=== PATIENT | female | born 1990 | race Caucasian/White ===

== ENCOUNTER 2022-04-15 14:45 | Inpatient (IN) | payer OTHER ==
[2022-04-15] MEDS ORDERED: SODIUM CHLORIDE 1,000 ML IV STA (15:58)
[2022-04-15] MEDS: DEXTROSE 5%-LACTATED RINGERS 1,000 ML IV SCH (16:30)
[2022-04-15 17:16] LABS: BASO % 0.2 % (0-2.0); HEMOGLOBIN 10.6 GM/dL (10.7-15.3); LYMPH % 2.2 % (8-40); MCH 22.8 pg (25.7-33.7); MEAN CELL VOLUME 73.4 fl (80-96); MEAN PLT VOLUME 10.3 fl (7.5-11.1); MONO % 4.9 % (3.8-10.2); NEUT % 92.7 % (42.8-82.8); PLATELET COUNT 256 10^3/uL (134-434); RBC 4.64 M/mm3 (3.60-5.2); RDW 16.5 % (11.6-15.6)
[2022-04-15 17:23] LABS: INR 0.97 (0.83-1.09); PROTHROMBIN TIME (PATIENT) 11.3 SEC (9.7-13.0)
[2022-04-15 17:26] LABS: ACTIVATED PTT 26.6 SECONDS (25.2-36.5)
[2022-04-15 17:34] LABS: CALCIUM 9.5 mg/dL (8.5-10.1)
[2022-04-15 17:35] LABS: ALBUMIN 2.7 g/dl (3.4-5.0)
[2022-04-15 17:37] VITALS: BMI 24.4
[2022-04-15 17:38] LABS: CREATININE 0.7 mg/dL (0.55-1.3)
[2022-04-15 17:39] LABS: BILIRUBIN,TOTAL 1.9 mg/dL (0.2-1)
[2022-04-15 17:40] LABS: TOT PROT 6.8 g/dl (6.4-8.2)
[2022-04-15 17:51] LABS: ANISOCYTOSIS 1+; MACROCYTOSIS 0
[2022-04-15] MEDS ORDERED: OXYTOCIN 30 UNITS in 0.9% NS 30 UNIT/500 ML INFUS.BAG IVPB ONE (19:47)
[2022-04-15] MEDS: OXYTOCIN 30 UNITS in 0.9% NS 30 UNIT/500 ML INFUS.BAG IVPB SCH (19:50)
[2022-04-15] MEDS ORDERED: morphine SULFATE 4 MG/ML VIAL ONE (22:05)
[2022-04-16] MEDS ORDERED: FENTANYL/BUPIVACAINE/NS/PF - PCEA - 50 ML DISP.SYRIN EP ONE (00:46)
[2022-04-16] MEDS ORDERED: BUPIVACAINE HCL/PF 0.25% (2.5MG/ML) 10 ML VIAL ONE (00:51)
[2022-04-16] MEDS ORDERED: SODIUM CHLORIDE 1,000 ML IV STA (00:57)
[2022-04-16] MEDS ORDERED: NALOXONE HCL 0.4 MG/ML VIAL IVPUSH PRN (01:39)
[2022-04-16] MEDS ORDERED: FENTANYL/BUPIVACAINE/NS/PF - PCEA - 50 ML DISP.SYRIN EP SCH (01:45)
[2022-04-16] MEDS ORDERED: OXYTOCIN 20 UNITS in 0.9% NS 20 UNIT/1,000 ML INFUS.BAG IV ONE (02:45)
[2022-04-16] MEDS ORDERED: LIDOCAINE HCL 1% PRESERVATIVE FREE - 30ML VIAL ONE (02:45)
[2022-04-16 06:29] LABS: CORD BASE EXCESS -8.9 mmol/L (0-2); CORD HCO3 17.4 mmHg (20-29); CORD PCO2 39.3 mmHg (30-78); CORD pH 7.265 (7.14-7.44)
[2022-04-16 06:33] LABS: CORD BASE EXCESS -8.4 mmol/L (0-2); CORD HCO3 22.3 mmHg (20-29); CORD pH 7.128 (7.14-7.44)
[2022-04-16 06:50] VITALS: RESP 18
[2022-04-16] MEDS ORDERED: WITCH HAZEL 50% (TUCKS) 40 PAD/JAR PAD TP PRN (07:13)
[2022-04-16] MEDS ORDERED: BENZOCAINE 28 GM HEMORRHOIDAL OINTMENT TP PRN (07:13)
[2022-04-16] MEDS ORDERED: ACETAMINOPHEN 325 MG TABLET (FP) PO PRN (07:13)
[2022-04-16] MEDS ORDERED: OXYTOCIN 20 UNITS in 0.9% NS 20 UNIT/1,000 ML INFUS.BAG IV SCH (07:15)
[2022-04-16] MEDS: FERROUS SO4 325 MG TABLET (FP) PO SCH ×3 (09:00→17:04)
[2022-04-16] MEDS: PRENATAL VITAMINS W/ FOLIC ACID TABLET (FP) PO SCH (10:33)
[2022-04-16] MEDS: IBUPROFEN 600 MG TABLET (FP) PO PRN (17:03)
[2022-04-17 08:11] LABS: HEMATOCRIT 25.5 % (32.4-45.2); HEMOGLOBIN 8.1 GM/dL (10.7-15.3); MCH 23.8 pg (25.7-33.7); MCHC 31.8 g/dl (32.0-36.0); MEAN CELL VOLUME 74.9 fl (80-96); PLATELET COUNT 245 10^3/uL (134-434); RDW 16.5 % (11.6-15.6)
[2022-04-17] MEDS: IBUPROFEN 600 MG TABLET (FP) PO PRN ×2 (08:31→20:11)
[2022-04-17] MEDS: FERROUS SO4 325 MG TABLET (FP) PO SCH ×3 (08:31→18:10)
[2022-04-17] MEDS: PRENATAL VITAMINS W/ FOLIC ACID TABLET (FP) PO SCH (09:02)
[2022-04-17 09:10] LABS: ANISOCYTOSIS 0; HELMET CELLS 0; HOWELL-JOLLY BODIES 0; MACROCYTOSIS 0; OVALOCYTE 0; ROULEAU 0; SICKELED CELLS 0; TARGET CELLS 0; TEAR DROP CELLS 0; TOXIC GRANULATION 0
[2022-04-17] MEDS: OXYTOCIN 30 UNITS in 0.9% NS 30 UNIT/500 ML INFUS.BAG IVPB SCH ×2 (21:47→21:48)
[2022-04-17] MEDS: DEXTROSE 5%-LACTATED RINGERS 1,000 ML IV SCH ×2 (21:47→21:48)
[2022-04-17] MEDS ORDERED: SENNOSIDES/DOCUSATE COMBO (SENNA PLUS) TABLET (UD) PO PRN (22:00)
[2022-04-18] MEDS: IBUPROFEN 600 MG TABLET (FP) PO PRN ×3 (00:11→09:34)
[2022-04-18 09:00] VITALS: BP 118/80; PULSE 108; TEMP 98
[2022-04-18] MEDS: FERROUS SO4 325 MG TABLET (FP) PO SCH ×2 (09:00→12:00)
[2022-04-18] MEDS: PRENATAL VITAMINS W/ FOLIC ACID TABLET (FP) PO SCH (09:33)
== END 2022-04-18 14:35 | disposition home or self-care (01) | DRG 807 ==
LOC: JDEL 14:45 → JLDR 15:40 → J3W 04-16 08:00
PROVIDERS: ADMIT Obstetrics & Gynecology Maternal & Fetal Medicine; ATTEND Obstetrics & Gynecology Maternal & Fetal Medicine
PROC: 10E0XZZ Delivery of Products of Conception, External Approach (ICD-10-PCS; principal; 2022-04-16)
PROC: 0W8NXZZ Division of Female Perineum, External Approach (ICD-10-PCS; 2022-04-16)
PROC: 0HQ9XZZ Repair Perineum Skin, External Approach (ICD-10-PCS; 2022-04-16)
DX: O70.0 First degree perineal laceration during delivery (principal); Z37.0 Single live birth; O21.2 Late vomiting of pregnancy; Z3A.39 39 weeks gestation of pregnancy; Z87.59 Personal history of other complications of pregnancy, childbirth and the puerperium; Z87.39 Personal history of other diseases of the musculoskeletal system and connective tissue; Z86.2 Personal history of diseases of the blood and blood-forming organs and certain disorders involving the immune mechanism
CPT/HCPCS: 36415; 36600; 59025; 59409; 80053; 82803; 85025; 85461; 85610; 85730; 86780; 86850; 86870; 86900; 86901; 86902; 88307-TC; C9803-CS; U0003; U0005

== ENCOUNTER 2022-04-18 22:22 | Inpatient (IN) | payer OTHER ==
[2022-04-18] MEDS ORDERED: SODIUM CHLORIDE 0.9% 500 ML INFUS.BAG IV ONE (22:42)
[2022-04-18] MEDS ORDERED: ACETAMINOPHEN 1000 MG/100 ML BAG IVPB ONE (22:42)
[2022-04-18] MEDS ORDERED: ACETAMINOPHEN INJECTION 100 ML IVPB ONE (22:51)
[2022-04-18] MEDS ORDERED: ONDANSETRON 4 MG/2 ML VIAL IVPUSH ONE (22:57)
[2022-04-18] MEDS ORDERED: ONDANSETRON 4 MG/2 ML VIAL ONE (22:58)
[2022-04-18 23:16] LABS: BASO % 0.2 % (0-2.0); EOS % 0.4 % (0-4.5); HEMATOCRIT 28.1 % (32.4-45.2); HEMOGLOBIN 8.7 GM/dL (10.7-15.3); MCH 22.4 pg (25.7-33.7); MCHC 31.1 g/dl (32.0-36.0); MONO % 4.2 % (3.8-10.2); NEUT % 91.2 % (42.8-82.8); PLATELET COUNT 382 10^3/uL (134-434); RBC 3.91 M/mm3 (3.60-5.2); RDW 16.9 % (11.6-15.6); WHITE BLOOD COUNT 20.3 K/mm3 (4.0-10.0)
[2022-04-18 23:29] LABS: INR 1.09 (0.83-1.09); PROTHROMBIN TIME (PATIENT) 12.6 SEC (9.7-13.0)
[2022-04-18 23:32] LABS: ACTIVATED PTT 28.1 SECONDS (25.2-36.5)
[2022-04-18 23:44] LABS: CREATININE 0.5 mg/dL (0.55-1.3)
[2022-04-18 23:59] LABS: ANISOCYTOSIS 2+; PLATELET ESTIMATE INCREASED
[2022-04-19 00:17] LABS: ALBUMIN 1.7 g/dl (3.4-5.0); BILIRUBIN,TOTAL 0.9 mg/dL (0.2-1); BLOOD UREA NITROGEN 13.7 mg/dL (7-18); CALCIUM 8.2 mg/dL (8.5-10.1)
[2022-04-19] MEDS ORDERED: VANCOMYCIN 1 GM in D5W (PRE-DOCKED) 1,000 MG/250 ML IVPB ONE ×2 (01:36→01:58)
[2022-04-19] MEDS ORDERED: PIPERACILLIN/TAZOB 4.5 GM 4.5 GM in DEXTROSE 5%-WATER 100 ML IVPB ONE ×2 (01:36→01:57)
[2022-04-19] MEDS ORDERED: PIPERACILLIN/TAZOB 4.5 GM 4.5 GM/100 ML BAG IVPB ONE (01:39)
[2022-04-19] MEDS ORDERED: DEXTROSE 5%-LACTATED RINGERS 1,000 ML IV SCH (01:45)
[2022-04-19] MEDS ORDERED: VANCOMYCIN/WATER FOR INJ (PEG) 1,000 MG/200 ML BAG IVPB ONE (02:20)
[2022-04-19] MEDS ORDERED: LIDOCAINE HCL 2% JELLY 6 ML TP ONE (02:21)
[2022-04-19] MEDS ORDERED: LIDOCAINE VISCOUS 2% ORAL/TOP 100 ML BOTTLE MM ONE (02:21)
[2022-04-19] MEDS ORDERED: LIDOCAINE HCL 2% JELLY 11 ML TP ONE (02:30)
[2022-04-19] MEDS ORDERED: LACTATED RINGERS SOLUTION 1000 ML INFUS.BAG IV ONE (02:57)
[2022-04-19] MEDS ORDERED: BUPIVACAINE HCL/PF 0.25% (2.5MG/ML) 10 ML VIAL ONE (05:21)
[2022-04-19] MEDS ORDERED: SUCCINYLCHOLINE CHLORIDE 200 MG/10 ML SYRINGE ONE (05:35)
[2022-04-19] MEDS ORDERED: PROPOFOL 20 ML ONE (05:35)
[2022-04-19] MEDS ORDERED: HYDROmorphone HCl 2 MG/ML VIAL ONE (05:35)
[2022-04-19] MEDS ORDERED: ROCURONIUM BROMIDE 50 MG/5 ML SYRINGE ONE (05:35)
[2022-04-19] MEDS ORDERED: MIDAZOLAM HCL 2 MG/2 ML SINGLE DOSE VIAL ONE (05:35)
[2022-04-19] MEDS ORDERED: BUPIVACAINE HCL/PF 0.25% (2.5MG/ML) 10 ML VIAL IJ ONE (06:30)
[2022-04-19] MEDS ORDERED: NEOSTIGMINE METHYLSULFATE 0.5 MG/1 ML - 10 ML MDV ONE (07:13)
[2022-04-19] MEDS ORDERED: ACETAMINOPHEN INJECTION 100 ML IVPB ONE (07:16)
[2022-04-19] MEDS ORDERED: ONDANSETRON 4 MG/2 ML VIAL IVPUSH PRN (07:34)
[2022-04-19] MEDS ORDERED: LACTATED RINGERS SOLUTION 1,000 ML IV SCH ×2 (07:45→08:31)
[2022-04-19] MEDS ORDERED: HYDROmorphone *PCA* 10MG/50ML DISP.SYRIN PCA SCH (07:45)
[2022-04-19] MEDS ORDERED: HYDROmorphone *PCA* 10MG/50ML DISP.SYRIN ONE (08:25)
[2022-04-19] MEDS: HYDROmorphone *PCA* 10MG/50ML DISP.SYRIN PCA SCH (08:41)
[2022-04-19] MEDS ORDERED: PIPERACILLIN/TAZOB 3.375 GM 3.375 GM in DEXTROSE 5%-WATER - 50 ML IVPB SCH (10:00)
[2022-04-19] MEDS ORDERED: ACETAMINOPHEN 1000 MG/100 ML BAG IVPB PRN (14:00)
[2022-04-19] MEDS: MINERAL OIL 30 ML UNIT-DOSE CUP NGT SCH ×2 (15:49→22:15)
[2022-04-19] MEDS: POLYETHYLENE GLYCOL (HEALTHYLAX) 3350 17 GM PACKET NGT SCH ×2 (15:49→22:15)
[2022-04-19] MEDS: DEXTROSE 5%-LACTATED RINGERS 1,000 ML IV SCH (16:01)
[2022-04-19] MEDS: PIPERACILLIN/TAZOB 4.5 GM 4.5 GM in DEXTROSE 5%-WATER 100 ML IVPB SCH (18:09)
[2022-04-19 20:46] VITALS: BMI 24.8
[2022-04-20] MEDS: PIPERACILLIN/TAZOB 4.5 GM 4.5 GM in DEXTROSE 5%-WATER 100 ML IVPB SCH ×3 (02:02→18:09)
[2022-04-20] MEDS: POLYETHYLENE GLYCOL (HEALTHYLAX) 3350 17 GM PACKET NGT SCH (07:40)
[2022-04-20 08:20] LABS: CALCIUM 7.9 mg/dL (8.5-10.1)
[2022-04-20 08:23] LABS: HEMATOCRIT 23.8 % (32.4-45.2); HEMOGLOBIN 7.7 GM/dL (10.7-15.3); MCH 23.7 pg (25.7-33.7); MCHC 32.5 g/dl (32.0-36.0); MEAN CELL VOLUME 72.9 fl (80-96); MEAN PLT VOLUME 8.7 fl (7.5-11.1); PLATELET COUNT 489 10^3/uL (134-434); RBC 3.26 M/mm3 (3.60-5.2); RDW 16.7 % (11.6-15.6); WHITE BLOOD COUNT 3.3 K/mm3 (4.0-10.0)
[2022-04-20 08:24] LABS: CREATININE 0.5 mg/dL (0.55-1.3)
[2022-04-20 08:25] LABS: BILIRUBIN,TOTAL 0.5 mg/dL (0.2-1)
[2022-04-20 08:27] LABS: TOT PROT 4.2 g/dl (6.4-8.2)
[2022-04-20 08:38] LABS: ALBUMIN 1.3 g/dl (3.4-5.0)
[2022-04-20 09:36] LABS: ANISOCYTOSIS 1+
[2022-04-20] MEDS: DEXTROSE 5%-LACTATED RINGERS 1,000 ML IV SCH ×2 (09:43→14:19)
[2022-04-20] MEDS: ENOXAPARIN NA (PORCINE) 40 MG/0.4 ML DISP.SYRIN SQ SCH (09:44)
[2022-04-20] MEDS: MINERAL OIL 30 ML UNIT-DOSE CUP NGT SCH ×3 (09:44→23:33)
[2022-04-20] MEDS: HYDROmorphone *PCA* 10MG/50ML DISP.SYRIN PCA SCH (09:45)
[2022-04-20] MEDS ORDERED: KETOROLAC TROMETHAMINE 30 MG/1 ML VIAL IM SCH (10:00)
[2022-04-20] MEDS: KETOROLAC TROMETHAMINE 30 MG/1 ML VIAL IVPUSH SCH ×2 (10:16→17:06)
[2022-04-20 11:04] LABS: URINE APPEARANCE TURBID; URINE BILIRUBIN NEGATIVE (NEGATIVE); URINE COLOR YELLOW; URINE GLUCOSE (UA) NEGATIVE (NEGATIVE); URINE KETONE NEGATIVE (NEGATIVE); URINE LEUK ESTERASE NEGATIVE (NEGATIVE); URINE NITRITE NEGATIVE (NEGATIVE); URINE PROTEIN NEGATIVE (NEGATIVE)
[2022-04-20] MEDS: ACETAMINOPHEN 1000 MG/100 ML BAG IVPB SCH ×3 (14:25→23:49)
[2022-04-21] MEDS: PIPERACILLIN/TAZOB 4.5 GM 4.5 GM in DEXTROSE 5%-WATER 100 ML IVPB SCH (02:15)
[2022-04-21] MEDS: KETOROLAC TROMETHAMINE 30 MG/1 ML VIAL IVPUSH SCH ×2 (02:15→10:19)
[2022-04-21] MEDS: MINERAL OIL 30 ML UNIT-DOSE CUP NGT SCH ×2 (06:27→17:17)
[2022-04-21] MEDS: ACETAMINOPHEN 1000 MG/100 ML BAG IVPB SCH (06:28)
[2022-04-21 09:16] LABS: BASO % 0.4 % (0-2.0); EOS % 4.3 % (0-4.5); HEMOGLOBIN 8.2 GM/dL (10.7-15.3); LYMPH % 23.3 % (8-40); MCH 23.9 pg (25.7-33.7); MCHC 32.7 g/dl (32.0-36.0); MEAN CELL VOLUME 73.1 fl (80-96); MEAN PLT VOLUME 8.3 fl (7.5-11.1); MONO % 12.4 % (3.8-10.2); NEUT % 59.6 % (42.8-82.8); PLATELET COUNT 527 10^3/uL (134-434); RBC 3.41 M/mm3 (3.60-5.2); RDW 16.4 % (11.6-15.6); WHITE BLOOD COUNT 5.8 K/mm3 (4.0-10.0)
[2022-04-21 09:39] LABS: CALCIUM 8.2 mg/dL (8.5-10.1)
[2022-04-21 09:40] LABS: ALBUMIN 1.5 g/dl (3.4-5.0); BLOOD UREA NITROGEN 15.9 mg/dL (7-18); MAGNESIUM 2.1 mg/dL (1.8-2.4)
[2022-04-21 09:43] LABS: CREATININE 0.4 mg/dL (0.55-1.3); PHOSPHOROUS 3.3 mg/dL (2.5-4.9)
[2022-04-21 09:44] LABS: TOT PROT 4.6 g/dl (6.4-8.2)
[2022-04-21 09:45] LABS: BILIRUBIN,TOTAL 0.4 mg/dL (0.2-1)
[2022-04-21] MEDS: ENOXAPARIN NA (PORCINE) 40 MG/0.4 ML DISP.SYRIN SQ SCH (10:20)
[2022-04-21] MEDS: HYDROmorphone *PCA* 10MG/50ML DISP.SYRIN PCA SCH (10:21)
[2022-04-21] MEDS ORDERED: ACETAMINOPHEN 325 MG TABLET (FP) PO PRN (13:36)
[2022-04-21] MEDS: DEXTROSE 5%-LACTATED RINGERS 1,000 ML IV SCH (16:48)
[2022-04-21] MEDS ORDERED: SILVER NITRATE 75% APPLIC STCK 1 PKT EACH TP ONE (17:01)
[2022-04-21] MEDS: POLYETHYLENE GLYCOL (HEALTHYLAX) 3350 17 GM PACKET PO SCH (21:51)
[2022-04-21] MEDS ORDERED: POLYETHYLENE GLYCOL (HEALTHYLAX) 3350 17 GM PACKET GT SCH ×2 (22:00)
[2022-04-22] MEDS: POLYETHYLENE GLYCOL (HEALTHYLAX) 3350 17 GM PACKET PO SCH ×3 (06:28→22:17)
[2022-04-22 09:17] LABS: BASO % 0.2 % (0-2.0); EOS % 3.4 % (0-4.5); HEMATOCRIT 26.4 % (32.4-45.2); HEMOGLOBIN 8.6 GM/dL (10.7-15.3); LYMPH % 25.1 % (8-40); MCH 23.7 pg (25.7-33.7); MCHC 32.4 g/dl (32.0-36.0); MEAN CELL VOLUME 73.2 fl (80-96); MEAN PLT VOLUME 8.1 fl (7.5-11.1); MONO % 8.1 % (3.8-10.2); NEUT % 63.2 % (42.8-82.8); PLATELET COUNT 607 10^3/uL (134-434); RBC 3.61 M/mm3 (3.60-5.2); RDW 16.9 % (11.6-15.6); WHITE BLOOD COUNT 7.7 K/mm3 (4.0-10.0)
[2022-04-22] MEDS: HYDROmorphone *PCA* 10MG/50ML DISP.SYRIN PCA SCH (09:43)
[2022-04-22] MEDS: ENOXAPARIN NA (PORCINE) 40 MG/0.4 ML DISP.SYRIN SQ SCH (09:50)
[2022-04-22 09:54] LABS: BLOOD UREA NITROGEN 10.1 mg/dL (7-18)
[2022-04-22 09:58] LABS: ALBUMIN 1.4 g/dl (3.4-5.0); CALCIUM 7.8 mg/dL (8.5-10.1); MAGNESIUM 1.9 mg/dL (1.8-2.4)
[2022-04-22 10:01] LABS: BILIRUBIN,TOTAL 0.3 mg/dL (0.2-1); CREATININE 0.3 mg/dL (0.55-1.3); PHOSPHOROUS 3.3 mg/dL (2.5-4.9)
[2022-04-22 10:02] LABS: TOT PROT 4.5 g/dl (6.4-8.2)
[2022-04-22] MEDS: DEXTROSE 5%-LACTATED RINGERS 1,000 ML IV SCH ×2 (13:59→18:46)
[2022-04-22] MEDS: MINERAL OIL 30 ML UNIT-DOSE CUP PO SCH ×2 (15:43→22:17)
[2022-04-23] MEDS: HYDROmorphone *PCA* 10MG/50ML DISP.SYRIN PCA SCH ×2 (01:00→10:41)
[2022-04-23] MEDS: POLYETHYLENE GLYCOL (HEALTHYLAX) 3350 17 GM PACKET PO SCH ×3 (06:53→22:21)
[2022-04-23] MEDS: DEXTROSE 5%-LACTATED RINGERS 1,000 ML IV SCH ×3 (09:26→17:27)
[2022-04-23] MEDS: ENOXAPARIN NA (PORCINE) 40 MG/0.4 ML DISP.SYRIN SQ SCH (09:27)
[2022-04-23 09:35] LABS: CALCIUM 8.3 mg/dL (8.5-10.1); MAGNESIUM 1.9 mg/dL (1.8-2.4)
[2022-04-23 09:36] LABS: CREATININE 0.4 mg/dL (0.55-1.3)
[2022-04-23 09:37] LABS: BILIRUBIN,TOTAL 0.5 mg/dL (0.2-1); TOT PROT 5.4 g/dl (6.4-8.2)
[2022-04-23 09:39] LABS: PHOSPHOROUS 3.4 mg/dL (2.5-4.9)
[2022-04-23 09:41] LABS: ALBUMIN 1.8 g/dl (3.4-5.0)
[2022-04-23 09:46] LABS: BASO % 0.2 % (0-2.0); EOS % 0.6 % (0-4.5); HEMOGLOBIN 10.3 GM/dL (10.7-15.3); LYMPH % 6.9 % (8-40); MCH 23.5 pg (25.7-33.7); MCHC 32.2 g/dl (32.0-36.0); MEAN CELL VOLUME 73.1 fl (80-96); MEAN PLT VOLUME 7.9 fl (7.5-11.1); MONO % 4.4 % (3.8-10.2); NEUT % 87.9 % (42.8-82.8); PLATELET COUNT 798 10^3/uL (134-434); RBC 4.38 M/mm3 (3.60-5.2); RDW 17.1 % (11.6-15.6); WHITE BLOOD COUNT 17.9 K/mm3 (4.0-10.0)
[2022-04-23] MEDS: MINERAL OIL 30 ML UNIT-DOSE CUP PO SCH ×2 (10:41→22:21)
[2022-04-23] MEDS: ONDANSETRON 4 MG/2 ML VIAL IVPUSH PRN ×2 (13:55→21:50)
[2022-04-23] MEDS: KETOROLAC TROMETHAMINE 15 MG/ML VIAL IVPUSH SCH ×2 (15:27→22:21)
[2022-04-23] MEDS: PIPERACILLIN/TAZOB 4.5 GM 4.5 GM in DEXTROSE 5%-WATER 100 ML IVPB SCH ×2 (15:30→21:21)
[2022-04-24] MEDS: PIPERACILLIN/TAZOB 4.5 GM 4.5 GM in DEXTROSE 5%-WATER 100 ML IVPB SCH ×4 (02:50→22:31)
[2022-04-24] MEDS: KETOROLAC TROMETHAMINE 15 MG/ML VIAL IVPUSH SCH ×4 (04:26→22:38)
[2022-04-24] MEDS: DEXTROSE 5%-LACTATED RINGERS 1,000 ML IV SCH ×2 (04:27→16:01)
[2022-04-24] MEDS: ONDANSETRON 4 MG/2 ML VIAL IVPUSH PRN (04:27)
[2022-04-24] MEDS: POLYETHYLENE GLYCOL (HEALTHYLAX) 3350 17 GM PACKET PO SCH ×3 (05:48→22:31)
[2022-04-24 09:36] LABS: BASO % 0.3 % (0-2.0); EOS % 1.2 % (0-4.5); HEMATOCRIT 26.4 % (32.4-45.2); HEMOGLOBIN 8.4 GM/dL (10.7-15.3); LYMPH % 14.7 % (8-40); MCHC 31.7 g/dl (32.0-36.0); MEAN CELL VOLUME 72.3 fl (80-96); MEAN PLT VOLUME 7.6 fl (7.5-11.1); MONO % 4.1 % (3.8-10.2); NEUT % 79.7 % (42.8-82.8); PLATELET COUNT 640 10^3/uL (134-434); RBC 3.65 M/mm3 (3.60-5.2); RDW 17.1 % (11.6-15.6)
[2022-04-24] MEDS: ENOXAPARIN NA (PORCINE) 40 MG/0.4 ML DISP.SYRIN SQ SCH (10:03)
[2022-04-24] MEDS: HYDROmorphone *PCA* 10MG/50ML DISP.SYRIN PCA SCH (10:04)
[2022-04-24 10:30] LABS: CALCIUM 8.4 mg/dL (8.5-10.1); CREATININE 0.5 mg/dL (0.55-1.3)
[2022-04-24 10:31] LABS: ALBUMIN 1.5 g/dl (3.4-5.0); MAGNESIUM 1.9 mg/dL (1.8-2.4)
[2022-04-24 10:32] LABS: BILIRUBIN,TOTAL 0.4 mg/dL (0.2-1); TOT PROT 4.4 g/dl (6.4-8.2)
[2022-04-24] MEDS ORDERED: ACETAMINOPHEN 325 MG TABLET (FP) PO PRN (12:50)
[2022-04-24] MEDS ORDERED: ACETAMINOPHEN 500 MG TABLET (FP) PO PRN (12:51)
[2022-04-24] MEDS: MINERAL OIL 30 ML UNIT-DOSE CUP PO SCH (17:58)
[2022-04-25] MEDS: PIPERACILLIN/TAZOB 4.5 GM 4.5 GM in DEXTROSE 5%-WATER 100 ML IVPB SCH ×2 (03:20→09:05)
[2022-04-25] MEDS: KETOROLAC TROMETHAMINE 15 MG/ML VIAL IVPUSH SCH ×4 (04:21→21:33)
[2022-04-25] MEDS: POLYETHYLENE GLYCOL (HEALTHYLAX) 3350 17 GM PACKET PO SCH ×3 (06:32→21:27)
[2022-04-25] MEDS: ENOXAPARIN NA (PORCINE) 40 MG/0.4 ML DISP.SYRIN SQ SCH (09:11)
[2022-04-25 09:25] LABS: BASO % 0.4 % (0-2.0); EOS % 1.8 % (0-4.5); HEMATOCRIT 26.4 % (32.4-45.2); HEMOGLOBIN 8.7 GM/dL (10.7-15.3); LYMPH % 20.6 % (8-40); MCH 24.3 pg (25.7-33.7); MCHC 32.8 g/dl (32.0-36.0); MEAN CELL VOLUME 74.1 fl (80-96); MEAN PLT VOLUME 7.8 fl (7.5-11.1); MONO % 5.8 % (3.8-10.2); NEUT % 71.4 % (42.8-82.8); PLATELET COUNT 664 10^3/uL (134-434); RBC 3.56 M/mm3 (3.60-5.2); RDW 17.2 % (11.6-15.6); WHITE BLOOD COUNT 8.3 K/mm3 (4.0-10.0)
[2022-04-25 09:34] LABS: INR 1.12 (0.83-1.09)
[2022-04-25 10:02] LABS: CALCIUM 8.2 mg/dL (8.5-10.1)
[2022-04-25 10:03] LABS: ALBUMIN 1.5 g/dl (3.4-5.0)
[2022-04-25 10:06] LABS: CREATININE 0.5 mg/dL (0.55-1.3)
[2022-04-25 10:07] LABS: BILIRUBIN,TOTAL 0.3 mg/dL (0.2-1); TOT PROT 4.4 g/dl (6.4-8.2)
[2022-04-25] MEDS: DEXTROSE 5%-LACTATED RINGERS 1,000 ML IV SCH (18:38)
[2022-04-26] MEDS: DEXTROSE 5%-LACTATED RINGERS 1,000 ML IV SCH ×3 (01:15→17:46)
[2022-04-26] MEDS: KETOROLAC TROMETHAMINE 15 MG/ML VIAL IVPUSH SCH ×4 (04:42→22:36)
[2022-04-26] MEDS: POLYETHYLENE GLYCOL (HEALTHYLAX) 3350 17 GM PACKET PO SCH ×3 (06:41→22:36)
[2022-04-26 09:51] LABS: BASO % 0.4 % (0-2.0); EOS % 1.7 % (0-4.5); HEMATOCRIT 30.6 % (32.4-45.2); HEMOGLOBIN 9.8 GM/dL (10.7-15.3); LYMPH % 18.1 % (8-40); MCH 23.8 pg (25.7-33.7); MCHC 32.2 g/dl (32.0-36.0); MEAN PLT VOLUME 7.8 fl (7.5-11.1); MONO % 5.5 % (3.8-10.2); NEUT % 74.3 % (42.8-82.8); PLATELET COUNT 751 10^3/uL (134-434); RBC 4.13 M/mm3 (3.60-5.2); RDW 17.8 % (11.6-15.6); WHITE BLOOD COUNT 9.4 K/mm3 (4.0-10.0)
[2022-04-26 10:14] LABS: CALCIUM 8.3 mg/dL (8.5-10.1)
[2022-04-26 10:15] LABS: ALBUMIN 1.7 g/dl (3.4-5.0); BLOOD UREA NITROGEN 4.6 mg/dL (7-18)
[2022-04-26 10:18] LABS: CREATININE 0.4 mg/dL (0.55-1.3)
[2022-04-26 10:19] LABS: BILIRUBIN,TOTAL 0.4 mg/dL (0.2-1); TOT PROT 4.8 g/dl (6.4-8.2)
[2022-04-26] MEDS: ENOXAPARIN NA (PORCINE) 40 MG/0.4 ML DISP.SYRIN SQ SCH (13:58)
[2022-04-27] MEDS: KETOROLAC TROMETHAMINE 15 MG/ML VIAL IVPUSH SCH (05:00)
[2022-04-27] MEDS: POLYETHYLENE GLYCOL (HEALTHYLAX) 3350 17 GM PACKET PO SCH ×3 (05:03→22:05)
[2022-04-27] MEDS ORDERED: ACETAMINOPHEN 325 MG TABLET (FP) PO PRN (07:13)
[2022-04-27] MEDS: ENOXAPARIN NA (PORCINE) 40 MG/0.4 ML DISP.SYRIN SQ SCH (10:35)
[2022-04-27 15:22] VITALS: RESP 20
[2022-04-28] MEDS: POLYETHYLENE GLYCOL (HEALTHYLAX) 3350 17 GM PACKET PO SCH ×2 (06:46→16:32)
[2022-04-28] MEDS: ENOXAPARIN NA (PORCINE) 40 MG/0.4 ML DISP.SYRIN SQ SCH (10:03)
[2022-04-28 15:11] VITALS: BP 127/86; PULSE 73; TEMP 98.2
== END 2022-04-28 17:41 | disposition home or self-care (01) | DRG 769 ==
LOC: JER 22:22 → JERBED 04-19 05:11 → J8W 04-19 15:37
PROVIDERS: ADMIT Internal Medicine; ATTEND Nurse Practitioner Family
PROC: 0D1N074 Bypass Sigmoid Colon to Cutaneous with Autologous Tissue Substitute, Open Approach (ICD-10-PCS; 2022-04-19)
PROC: 0DJD4ZZ Inspection of Lower Intestinal Tract, Percutaneous Endoscopic Approach (ICD-10-PCS; 2022-04-19)
PROC: 3E1M48Z Irrigation of Peritoneal Cavity using Irrigating Substance, Percutaneous Endoscopic Approach (ICD-10-PCS; 2022-04-19)
PROC: 0DTN0ZZ Resection of Sigmoid Colon, Open Approach (ICD-10-PCS; principal; 2022-04-19 05:00)
DX: O90.89 Other complications of the puerperium, not elsewhere classified (principal); K63.1 Perforation of intestine (nontraumatic); K65.1 Peritoneal abscess; N13.30 Unspecified hydronephrosis; K56.699 Other intestinal obstruction unspecified as to partial versus complete obstruction; K59.00 Constipation, unspecified; K66.8 Other specified disorders of peritoneum; G80.9 Cerebral palsy, unspecified; O99.893 Other specified diseases and conditions complicating puerperium; K80.80 Other cholelithiasis without obstruction; D72.829 Elevated white blood cell count, unspecified; Z93.3 Colostomy status
CPT/HCPCS: 0241U-QW; 36415; 71045-TC-FY; 74018-TC-FY; 74176-TC; 74177-TC; 76705-TC; 80048; 80053; 81003; 83605; 83735; 84100; 84484; 84702; 85025; 85379; 85384; 85610; 85730; 86140; 86850; 86870; 86900; 86901; 86902; 87040; 87086; 88307-TC; 93005; 93010; 94010; 94760; 97116-GP; 97161-GP; 99285-25; Q9967

== ENCOUNTER 2022-08-01 04:47 | Day surgery (SDC) | payer OTHER ==
[2022-07-26 12:17] VITALS: BMI 20.2
[2022-08-01 13:53] VITALS: TEMP 98.4
[2022-08-01 13:56] VITALS: BP 103/67; PULSE 61; RESP 17
== END 2022-08-01 14:02 | disposition home or self-care (01) ==
LOC: JASU-ENDO 04:47
PROVIDERS: ATTEND Student in an Organized Health Care Education/Training Program
PROC: 0DBB8ZX Excision of Ileum, Via Natural or Artificial Opening Endoscopic, Diagnostic (ICD-10-PCS; principal; 2022-08-01 11:30)
DX: Z87.19 Personal history of other diseases of the digestive system (principal); K59.00 Constipation, unspecified
CPT/HCPCS: 81025; 88305-TC